=== PATIENT | female | born 1970 | race African-American/Black ===

== ENCOUNTER 2025-05-11 21:42 | Emergency (ER) | payer OTHER, SELFPAY ==
[2025-05-11 21:45] VITALS: BMI 24.3
[2025-05-11 22:24] VITALS: BP 130/84; PULSE 79; RESP 18; TEMP 36.9; O2SAT 98
--- NOTE | 2025-05-11 22:57 | PD.EDUPEX ---
Upper Extremity Injury RME/HPI General Chief Complaint: Extremity Injury, Upper Stated Complaint: LEFT SHOULDER PAIN Time Seen by Provider: 05/11/25 22:16 Arrival date/time: 05/11/25 21:42 RME / HPI RME / HPI narrative: 54-year-old female presents to the ED with a complaint of left shoulder pain that is chronic in nature. She states that she was living in [place] and fell in an elevator at a hospital. She had an injury to her neck and left shoulder. MRIs, previously obtained revealed no issue of the left shoulder but revealed disc problems in her cervical spine. She is complaining of numbness and tingling to her left hand which is exacerbated by extension of her neck. She is currently visiting the area for 3 months and will be here for an additional 2 months. She ran out of her pain medication, Naprosyn 500 mg. She is requesting a referral to a neurosurgeon. She is also having difficulty sleeping due to the pain and notices requesting something to help her sleep. Related Data Previous Rx's ?Medication ?Instructions ?Recorded hydroxyzine HCl 25 mg tablet 25 mg PO .Nightly PRN itching #15 05/11/25 tabs naproxen 500 mg tablet (Naprosyn) 500 mg PO BID PRN pain #30 tabs 05/11/25 Allergies Allergy/AdvReac Type Severity Reaction Status Date / Time codeine Allergy Verified 05/11/25 21:44 Penicillins Allergy Verified 05/11/25 21:44 Review of Systems Review of Systems Systems Reviewed: All systems reviewed, normal except as documented Past Medical History Social History SMOKING STATUS: Never smoker ED Exam Narrative Physical exam: A&O, afebrile and non-toxic appearing, very pleasant 54-year-old female, no acute distress. Lung sounds are clear, RRR. She has cervical spine tenderness, again which is chronic, as well as left trapezius tenderness. Equal fire observer strength, sensory decreased to the left index finger and left ring finger. No sensory deficit to the thumb, middle finger, or small finger. She has normal range of motion of her shoulder with mild tenderness to the posterior GH joint area. Moves all other extremities well. Course Course Course Narrative: Patient was given Naprosyn 500 mg p.o. as she requested. No imaging studies were performed as she has already had an MRI of her cervical spine and left shoulder. Quality Measures none Vital Signs Vital signs: Vital Signs Temperature 98.4 F 05/11/25 22:24 Pulse Rate 79 05/11/25 22:24 Respiratory Rate 18 05/11/25 22:24 Blood Pressure 130/84 05/11/25 22:24 Pulse Oximetry (%) 98 05/11/25 22:24 Oxygen Delivery Method Room Air 05/11/25 22:24 Extremity Injury MDM Narrative MDM Narrative:: Symptoms, exam and diagnostic studies are consistent with: C-spine radiculopathy of the left shoulder and left hand. Patient was discharged home in stable condition. Patient/family advised to follow-up with their PCP in 24-48 hours. Encouraged to return to the ED for any new or worsening symptoms. Patient data External records reviewed:: None Clinical information provided by:: patient Social determinants that could affect healthcare access:: none Patient has the following chronic illnesses:: Chronic cervical spine and left shoulder pain secondary to a ground-level fall she sustained in November,. How is presenting disease/condition affected by chronic disease/condition?: exacerbated by Evaluation data The following diagnostics were reviewed and interpreted by me:: other (specify) (None ordered) Lab and/or radiology exams considered but not ordered:: N/A Interpretation Summary: N/A Medications / Prescriptions Medication administrations:: Naprosyn 500 mg p.o. Consultations Consultation(s) initiated? (list below): No Diagnosis Upper Extremity Injury Differential Diagnosis: other (Cervical radiculopathy to the left shoulder and hand) Most likely diagnosis given after review of the tests above:: Cervical radiculopathy to the left shoulder and hand Admission Indicated Admission indicated?: not indicated Explain why admission is indicated or not indicated:: Patient is stable for discharge Admission Request Was there a request for admission?: No Admission Attestation Admission request attestation: N/A Disposition Plan Disposition Plan: Discharge Discharge Attestation Discharge Attestation: The patient and all family members were given an opportunity to ask questions and understood the discharge instructions. Discharge instructions specifically effects, indications for sooner follow up or return to the emergency department, and the expected course of current diagnosis. Patient condition: Stable Discharge Plan Plan Patient Disposition: HOME (Self Care) Discharge Disposition comment: Stable Prescriptions/Referrals Prescriptions/Med Rec: New naproxen [Naprosyn] 500 mg tablet 500 mg PO BID PRN (Reason: pain) Qty: 30 0RF hydroxyzine HCl 25 mg tablet 25 mg PO .Nightly PRN (Reason: itching) Qty: 15 0RF Problem List Clinical Impression: Cervical disc disorder with radiculopathy Patient/Caregiver Discharge Instructions Education Materials: Cervical Disk Problems, Know Your Neck: The Cervical Spine Additional Instructions: Take the antibiotic inflammatory medication as needed for your left shoulder pain. Contact a local clinic for follow-up care and referral to a neurologist or neurosurgeon. The pain you are experiencing in your left shoulder and numbness/tingling in your left hand is likely related to the disc problem in your neck causing cervical radiculopathy. Follow-up with your primary care physician in 24 to 48 hours. Return to the ED for any new or worsening symptoms. Print Language: Belgian Stand Alone Forms: [employer] Award Info., Patient Portal Info Letter PA/DISABILITY LIAISON OFFICER Supervising Physician PA/YURIY Supervising Physician: Dr. Iglesias
[2025-05-11] MEDS: NAPROXEN 250 MG TABLET 500 MG PO (23:09)
== END 2025-05-11 23:28 | disposition home or self-care (01) ==
LOC: SERX 23:24
PROVIDERS: Emergency Provider Emergency Medicine
DX: M50.10 Cervical disc disorder with radiculopathy, unspecified cervical region (principal)
CPT/HCPCS: 99283; A9270